=== PATIENT | male | born 1955 | race Caucasian/White ===

== ENCOUNTER 2016-12-14 09:46 | Inpatient (IN) | payer OTHER ==
[2016-12-14 10:23] VITALS: BMI 33.5
[2016-12-14 10:56] LABS: BASO # 0.1 K/uL (0.0-0.2); BASO % 0.9 % (0.0-2.0); EOS # 0.3 K/uL (0.0-0.7); EOS % 5.5 % (0.0-4.0); HEMOGLOBIN 13.6 g/dL (12.0-18.0); LYMPH % 16.2 % (20.0-40.0); MEAN CELL VOLUME 83.5 fl (80.0-94.0); MEAN CORPUSCULAR HEMOGLOBIN 27.1 pg (27.0-31.0); MEAN CORPUSCULAR HGB CONC 32.4 g/dL (33.0-37.0); MEAN PLATELET VOLUME 7.7 fl (7.2-11.7); MONO # 0.4 K/uL (0.0-0.8); MONO % 6.3 % (0.0-10.0); NEUT # 4.3 K/uL (1.8-7.0); NEUT % 71.1 % (50.0-75.0); NRBC % 0.1 % (0.0-0.0); RBC 5.02 Mil/uL (4.40-5.90); RED CELL DISTRIBUTION WIDTH 15.6 % (11.5-14.5); WHITE BLOOD COUNT 6.1 K/uL (4.8-10.8)
[2016-12-14 11:12] LABS: PARTIAL THROMBOPLASTIN TIME 36.3 Seconds (25.6-37.1); PROTHROMBIN TIME 10.9 Seconds (9.8-13.1)
[2016-12-14 11:19] LABS: ALB/GLOB RATIO 1.2 (1.0-2.1); ALBUMIN 4.4 g/dL (3.5-5.0); ALT/SGPT 42 U/L (21-72); AST/SGOT 31 U/L (17-59); BLOOD UREA NITROGEN 24 mg/dl (9-20); CALCIUM 9.8 mg/dL (8.4-10.2); GFR AFRICAN-AMERICAN > 60; GFR NON-AFRICAN AMERICAN > 60
[2016-12-14] MEDS ORDERED: Propofol 10 mg/ml Inj (20 ML) ONE (14:41)
[2016-12-14] MEDS ORDERED: Midazolam 2 MG/2 ML VIAL ONE (14:41)
[2016-12-14] MEDS ORDERED: Lidocaine 2% MPF (5 ml) Inj ONE (14:42)
[2016-12-14] MEDS ORDERED: Bacitracin Ointment 30 GM TUBE ONE (14:58)
[2016-12-14] MEDS ORDERED: Lactated Ringer's 1,000 ML IV ONE (15:00)
[2016-12-14] MEDS ORDERED: Sodium Chloride 0.9% 1,000 ML IV ONE ×2 (15:00→16:20)
[2016-12-14] MEDS ORDERED: ePHEDrine 50 mg/ml Inj ONE (15:04)
[2016-12-14] MEDS ORDERED: Bupivacaine 0.5% Inj(30mL) ONE (15:15)
[2016-12-14] MEDS ORDERED: Morphine 1 mg/ml preservative-free Inj(Duramorph) ONE (15:15)
[2016-12-14] MEDS ORDERED: EPINEPHrine 1 mg/ml (1:1000) Inj ONE (15:15)
[2016-12-14] MEDS ORDERED: Sodium Chloride 0.9% 20 ML IV ONE (15:15)
[2016-12-14] MEDS ORDERED: Rocuronium 10 mg/ml (5 ml) ONE (15:15)
[2016-12-14] MEDS ORDERED: Thrombin Topical 5,000 IU Spray Kit ONE (15:16)
[2016-12-14] MEDS ORDERED: Absorbable Gelatin Sponge Size 100 ONE (15:16)
[2016-12-14] MEDS ORDERED: Sodium Chloride 0.9% Inj (10mL) IV ONE (16:20)
[2016-12-14] MEDS ORDERED: Neostigmine Methylsulfate 3mg/3ml Syringe IV ONE (16:43)
[2016-12-14] MEDS ORDERED: Neostigmine Methylsulfate 2 MG/2 ML ML IV ONE (16:43)
--- NOTE | 2016-12-14 17:33 | PCM.SURG1 ---
Surgeon's Initial Post Op Note - Surgeon's Notes Surgeon: Meera Keys MD Production Grip: Annie Zarate PA-C; Génesis LUCIO Type of Anesthesia: General Endo Pre-Operative Diagnosis: Left Knee Severe Osteoarthritis Operative Findings: See op report Post-Operative Diagnosis: Same as pre-op dx Operation Performed: Left total knee replacement Specimen/Specimens Removed: left knee bone and soft tissue Estimated Blood Loss: EBL {In ML}: 100 Date of Surgery/Procedure: 12/14/16 Time of Surgery/Procedure: 15:15
[2016-12-14] MEDS ORDERED: HYDROmorphone 0.5 mg/0.5 ml ISec ONE (17:51)
[2016-12-14] MEDS: HYDROmorphone 0.5 mg/0.5 ml ISec IVP PRN ×3 (17:52→18:28)
--- NOTE | 2016-12-14 18:55 | CARD ---
APPROVED REPORT EKG Measurement Heart [id number] <Conclusion> Normal sinus rhythm Left axis deviation Low voltage QRS Septal infarct, age undetermined Abnormal ECG
[2016-12-14] MEDS ORDERED: ceFAZolin 1 GM in Sodium Chloride 0.9% 100 ML IVPB ONE (23:00)
[2016-12-15] MEDS ORDERED: Lactated Ringer's 1,000 ML IV SCH
[2016-12-15] MEDS: oxyCODONE 10 mg ER Tab (oxyCONTIN) PO SCH ×2 (02:50→09:01)
[2016-12-15] MEDS ORDERED: ceFAZolin 1 GM in Sodium Chloride 0.9% 100 ML IVPB ONE (07:00)
[2016-12-15 07:21] LABS: BASO % 0.5 % (0.0-2.0); EOS # 0.3 K/uL (0.0-0.7); EOS % 3.6 % (0.0-4.0); HEMOGLOBIN 9.5 g/dL (12.0-18.0); LYMPH # 0.8 K/uL (1.0-4.3); LYMPH % 11.2 % (20.0-40.0); MEAN CELL VOLUME 84.6 fl (80.0-94.0); MEAN CORPUSCULAR HEMOGLOBIN 27.2 pg (27.0-31.0); MEAN CORPUSCULAR HGB CONC 32.1 g/dL (33.0-37.0); MEAN PLATELET VOLUME 8.1 fl (7.2-11.7); MONO # 0.6 K/uL (0.0-0.8); MONO % 8.7 % (0.0-10.0); NEUT # 5.3 K/uL (1.8-7.0); RBC 3.51 Mil/uL (4.40-5.90); RED CELL DISTRIBUTION WIDTH 15.3 % (11.5-14.5)
[2016-12-15 07:39] LABS: CALCIUM 8.5 mg/dL (8.4-10.2)
--- NOTE | 2016-12-15 08:43 | OP ---
PROCEDURE DATE: 12/14/2016 PREOPERATIVE DIAGNOSIS: Left knee advanced arthritis. POSTOPERATIVE DIAGNOSIS: Left knee advanced arthritis. PROCEDURE: Left total knee replacement. SURGEON: Meera Keys MD. DOG WALKER: Annie Zarate PA-C IMPLANTS SIZE: [employer] size 3 tibial baseplate, size 3 femur, 11 mm polyethylene insert, and 32 mm patellar button. ANESTHESIA TYPE: General. ESTIMATED BLOOD LOSS: 50 mL. COMPLICATIONS: None. HISTORY: Patient with prolonged history of left knee pain progressively getting worse despite extensive conservative management, which included activity modification, injections, anti-inflammatory modification and physical therapy. X-rays had revealed advanced arthritis. Patient was indicated for total knee replacement due to continued pain and limited mobility. I had a detailed discussion with the patient in the office explaining the nature of the surgery, alternatives of surgery, risks and benefits, rehabilitation protocol and surgical markings. Risks of surgery include but not limited to continued pain, lack of motion, infection, vascular injury, DVT/PE, nerve injury including peroneal nerve dysfunction, reflex sympathetic dystrophy, compartment syndrome, unforeseen medical and/or anesthesia complications, limb loss, and even . The patient expressed an understanding of the risks and possible benefits of the procedure, and is also aware of the alternatives to surgery. PROCEDURE: On the day of the surgery, the patient was admitted to pre-operative holding area. A laterality sheet was completed confirming the correct operative site. The correct surgical knee was marked in the holding area and informed consent was signed from the patient. Once again, I reviewed the risks and benefits of the surgery with the patient in detail. These risks include but are not limited to continued pain, lack of motion, infection, vascular injury, DVT/PE, nerve injury including peroneal nerve dysfunction, reflex sympathetic dystrophy, symptomatic hardware, need for further procedure and surgeries, instability, iatrogenic fractures, compartment syndrome, unforeseen medical and/or anesthesia complications, limb loss, and even . The patient expressed an understanding of the risks and possible benefits of the procedure, also aware of the alternatives to surgery and signed the informed consent. The patient was transported to the operating room and placed in the supine position, general anesthesia was obtained Exam Under Anesthesia revealed effusion 1+, range of motion is 0-125 degrees, stable to varus and valgus stress, slight valgus alignment. A padded tourniquet was applied to patient's operative thigh and appropriate prophylactic antibiotics were given. The operative leg was draped and prepped in standard sterile manner. Timeout was completed, confirming patient's left knee to be the correct operative site. Using an Esmarch, the extremity was exsanguinated and tourniquet was inflated to 350 mmHg. The surgical incision markings were made using patella border, tibial tubercle, patella and quadriceps tendon. Using a 10 blade, a midline incision was made. Skin dissection was taken until the prepatellar fascia was identified and the corners of the patellar tendon were marked for proper closure at the end of the procedure. Using a fresh 10 blade, a medial parapatellar arthrotomy was performed. The knee was exposed in the standard manner. The deep MCL was elevated for exposure, medial and lateral menisci were removed, ACL and PCL were also transected. The tibia was subluxed anteriorly. Planned tibial cut was made with power saw, using extra-medullary guide, perpendicular to mechanical axis of the tibia. After the cut was made, the alignment was also checked and was found to be appropriate. Next, the knee was placed into 90 degrees of flexion. A drill hole was made within the femoral notch anterior to PCL insertion for placement of intramedullary femoral kimi. Intramedullary femoral kimi was inserted within the femoral canal and planned distal femoral cut was made. After the cut, knee was brought into full extension. Spacer blocks were used to check the extension balancing both in full extension and 30 degrees of flexion. It was found that a 11 mm trial spacer block allowed full extension with symmetric varus and valgus balancing. Next we proceed with Patella resurfacing. Benton patella width was found to be 26 mm. Using the free-hand technique the arthritic patella surface was resected. Patella was sized using the guide and it was noted that 32 mm Patella dome button would be appropriate for the patient. Next the size of femoral component was determined using the posterior referencing guide. It was noted that a size 3 femur would be appropriate for this patient without causing any significant notching. A 4 x 1 cutting block was placed and flexion gap balancing was checked. The flexion gap was found to be symmetric to the extension gap. Anterior and posterior condyle, anterior and posterior chamfer cuts were made. Next, appropriate size box cut for femoral component was prepared using the guide. The femoral trial component was impacted onto the distal femur. Appropriate size tibial trial component was also placed on the cut surface of the tibia. Using the drill and punch, keel for tibial implant was prepared. Trial tibial tray was secured onto the tibia using pins. Different size trial polyethylene inserts were secured on to the trial tibial tray to critically assess the following parameters: Full range of motion, extension and flexion gap balancing, mid-flexion stability, anterior and posterior drawer, and patellar tracking. All parameter were found to be satisfactory with size 11 mm insert. All the trial components were removed. Implants were opened on the back table. Cement was mixed and we proceed with cement fixation of the implants. Tibial tray, femoral component and patellar dome button were secured with cement. Polyethylene insert was secured onto the tibial tray using locking mechanism. The knee was reduced and brought into full extension. Cement was allowed to harden until final component fixation. Knee was taken through the final range of motion for stability testing, and found to be satisfactory. During this procedure, I was assisted by Annie Zarate, who assisted in positioning the patient on the operating room table as well as transferring the patient from the operating room table to the recovery room stretcher. In addition, Annie Zarate, assisted me during the actual operative procedure by positioning, protecting critical neurovascular structures, exposure of the joint, and proper positioning of the implants. The presence of Annie Zarate as my operative dietetic assistant was medically necessary to ensure the utmost safety of the patient in the pre, intra-, and post-operative periods. Meera Keys MD
[2016-12-15] MEDS ORDERED: Sodium Chloride 0.9% 1,000 ML IV SCH (09:00)
--- NOTE | 2016-12-15 10:17 | CP.PCM.HP ---
History of Present Illness - History of Present Illness History of Present Illness: This is a 61 y/o male admitted for Left knee TKR for progressive knee pain from work related injury Has a hx of HTN Hyperlipidemia CAD with stnt placed in the past and DM 2 and on medications but not aware of dose. Claims to be on BP meds lipid lowering agent and metformin. Conservative measures wre initiated but failed hence advised surgery. patient is being evaluated post op. Present on Admission - Present on Admission Any Indicators Present on Admission: No History of DVT/PE: No History of Uncontrolled Diabetes: No Urinary Catheter: No Decubitus Ulcer Present: No Review of Systems - Musculoskeletal Musculoskeletal: Arthralgias, Muscle Weakness, Myalgias Past Patient History - Past Medical History & Family History Past Medical History?: Yes - Past Social History Smoking Status: Current Some Days Smoker - CARDIAC Hx Cardiac Disorders: Yes Hx Hypercholesterolemia: Yes Hx Hypertension: Yes - PULMONARY Hx Respiratory Disorders: No - NEUROLOGICAL Hx Neurological Disorder: No Other/Comment: CAD - HEENT Hx HEENT Problems: No - RENAL Hx Chronic Kidney Disease: No - ENDOCRINE/METABOLIC Hx Endocrine Disorders: Yes Hx Diabetes Mellitus Type 2: Yes - HEMATOLOGICAL/ONCOLOGICAL Hx Blood Disorders: No Hx Anemia: No Hx Blood Transfusions: No - INTEGUMENTARY Hx Dermatological Problems: No - MUSCULOSKELETAL/RHEUMATOLOGICAL Hx Musculoskeletal Disorders: Yes Hx Back Pain: Yes Hx Falls: Yes Hx Osteoarthritis: Yes - GASTROINTESTINAL Hx Gastrointestinal Disorders: No - GENITOURINARY/GYNECOLOGICAL Hx Genitourinary Disorders: No - PSYCHIATRIC Hx Emotional Abuse: No Hx Physical Abuse: No - SURGICAL HISTORY Hx Surgeries: Yes Other/Comment: INSERTION OF HEART STENTX4-2004;BACK SURGERY-APR 2015;LEFT KNEE [id number];RIGHT FINGER SURGERY-LONG TIME AGO - ANESTHESIA Hx Anesthesia: Yes Hx Anesthesia Reactions: No Hx Malignant Hyperthermia: No Has any member of the family had a problem w/ anesthesia?: No Meds Allergies/Adverse Reactions: Allergies Allergy/AdvReac Type Severity Reaction Status Date / Time No Known Allergies Allergy Verified 03/30/16 07:50 Physical Exam - Head Exam Head Exam: NORMAL INSPECTION - Eye Exam Eye Exam: Normal appearance - Respiratory Exam Respiratory Exam: Clear to Auscultation Bilateral - Cardiovascular Exam Cardiovascular Exam: REGULAR RHYTHM - GI/Abdominal Exam GI & Abdominal Exam: Normal Bowel Sounds - Extremities Exam Extremities exam: Positive for: joint swelling - Neurological Exam Neurological exam: CN II-XII Intact, Oriented x3 - Psychiatric Exam Psychiatric exam: Normal Mood Results - Vital Signs Recent Vital Signs: Last Vital Signs Temp 97.7 F 12/15/16 08:00 Pulse 92 H 12/15/16 08:00 Resp 20 12/15/16 08:00 BP 100/61 12/15/16 08:00 Pulse Ox 96 12/15/16 08:00 - Labs Result Diagrams: 12/15/16 06:45 12/15/16 06:45 Labs: Laboratory Results - last 24 hr 12/14/16 12/14/16 12/14/16 10:25 10:25 10:25 WBC 6.1 RBC 5.02 Hgb 13.6 Hct 41.9 MCV 83.5 MCH 27.1 MCHC 32.4 L RDW 15.6 H Plt Count 212 MPV 7.7 Neut % (Auto) 71.1 Lymph % (Auto) 16.2 L Dillon % (Auto) 6.3 Eos % (Auto) 5.5 H Baso % (Auto) 0.9 Neut # 4.3 Lymph # 1.0 Dillon # 0.4 Eos # 0.3 Baso # 0.1 PT INR APTT Sodium 140 Potassium 4.5 Chloride 101 Carbon Dioxide 28 Anion Gap 15 BUN 24 H Creatinine 1.2 Est GFR ( Amer) > 60 Est GFR (Non-Af Amer) > 60 POC Glucose (mg/dL) Random Glucose 219 H Calcium 9.8 Total Bilirubin 0.4 AST 31 ALT 42 Alkaline Phosphatase 93 Total Protein 8.2 Albumin 4.4 Globulin 3.8 Albumin/Globulin Ratio 1.2 Blood Type B POSITIVE Blood Type Confirm Antibody Screen Negative BBK History Checked No verified bt 12/14/16 12/14/16 12/14/16 10:27 10:58 11:11 WBC RBC Hgb Hct MCV MCH MCHC RDW Plt Count MPV Neut % (Auto) Lymph % (Auto) Dillon % (Auto) Eos % (Auto) Baso % (Auto) Neut # Lymph # Dillon # Eos # Baso # PT 10.9 INR 1.0 APTT 36.3 Sodium Potassium Chloride Carbon Dioxide Anion Gap BUN Creatinine Est GFR ( Amer) Est GFR (Non-Af Amer) POC Glucose (mg/dL) 216 H Random Glucose Calcium Total Bilirubin AST ALT Alkaline Phosphatase Total Protein Albumin Globulin Albumin/Globulin Ratio Blood Type Blood Type Confirm B POSITIVE Antibody Screen BBK History Checked 12/15/16 12/15/16 06:45 06:45 WBC 7.0 RBC 3.51 L Hgb 9.5 L D Hct 29.7 L MCV 84.6 MCH 27.2 MCHC 32.1 L RDW 15.3 H Plt Count 139 MPV 8.1 Neut % (Auto) 76.0 H Lymph % (Auto) 11.2 L Dillon % (Auto) 8.7 Eos % (Auto) 3.6 Baso % (Auto) 0.5 Neut # 5.3 Lymph # 0.8 L Dillon # 0.6 Eos # 0.3 Baso # 0.0 PT INR APTT Sodium 137 Potassium 4.3 Chloride 103 Carbon Dioxide 30 Anion Gap 8 L BUN 27 H Creatinine 1.5 Est GFR ( Amer) 57 Est GFR (Non-Af Amer) 47 POC Glucose (mg/dL) Random Glucose 207 H Calcium 8.5 Total Bilirubin AST ALT Alkaline Phosphatase Total Protein Albumin Globulin Albumin/Globulin Ratio Blood Type Blood Type Confirm Antibody Screen BBK History Checked Assessment & Plan (1) Status post total knee replacement, left Status: Acute (2) Hypertension Status: Acute (3) Coronary artery disease Status: Acute (4) Hyperlipidemia Status: Acute (5) Diabetes mellitus type 2 in obese Status: Acute - Assessment and Plan (Free Text) Plan: Pain meds restart meds in am phys therapy cont tx telemetry
--- NOTE | 2016-12-15 10:24 | CP.PCM.PN ---
Subjective - Date & Time of Evaluation Date of Evaluation: 12/15/16 Time of Evaluation: 10:22 - Subjective Subjective: Patient has some pain on the left knee. No PT yet Not on any home meds MT in the 50's Objective - Vital Signs/Intake and Output Vital Signs (last 24 hours): Temp Pulse Resp BP Pulse Ox 97.7 F 92 H 20 100/61 96 12/15/16 08:00 12/15/16 08:00 12/15/16 08:00 12/15/16 08:00 12/15/16 08:00 - Medications Medications: Current Medications Acetaminophen (Tylenol 325mg Tab) 325 mg PO Q4 PRN PRN Reason: pain1-3 Aspirin (Aspirin) 325 mg PO BID [facility] Last Admin: 12/15/16 09:00 Dose: 325 mg Celecoxib (Celebrex) 200 mg PO Q12 [facility] Stop: 01/25/17 23:59 Last Admin: 12/15/16 08:57 Dose: 200 mg Famotidine (Pepcid) 20 mg PO BID [facility] Last Admin: 12/15/16 08:57 Dose: 20 mg Hydromorphone HCl (Dilaudid) 0.5 mg IVP Q5M PRN PRN Reason: Pain, moderate (4-7) Last Admin: 12/14/16 18:28 Dose: 0.5 mg Sodium Chloride (Sodium Chloride 0.9%) 1,000 mls @ 60 mls/hr IV .[id number] [facility] Stop: 12/16/16 01:39 Ketorolac Tromethamine (Toradol) 15 mg IM Q8 [facility] Stop: 12/16/16 23:59 Last Admin: 12/15/16 01:24 Dose: 15 mg Ondansetron HCl (Zofran Odt) 4 mg PO Q8H PRN PRN Reason: Nausea/Vomiting Oxycodone HCl (Oxycontin Extended Release Tab) 10 mg PO Q12 [facility] Stop: 12/28/16 21:01 Last Admin: 12/15/16 09:01 Dose: 10 mg Oxycodone/Acetaminophen (Percocet 5/325 Mg Tab) 1 tab PO Q4 PRN PRN Reason: pain4-6 Stop: 12/17/16 17:46 - Labs Labs: 12/15/16 06:45 12/15/16 06:45 PT 10.9 Seconds (9.8-13.1) 12/14/16 10:27 INR 1.0 (0.9-1.2) 12/14/16 10:27 APTT 36.3 Seconds (25.6-37.1) 12/14/16 10:27 - Head Exam Head Exam: NORMAL INSPECTION - Eye Exam Eye Exam: Normal appearance - ENT Exam ENT Exam: Mucous Membranes Moist - Cardiovascular Exam Cardiovascular Exam: REGULAR RHYTHM - GI/Abdominal Exam GI & Abdominal Exam: Normal Bowel Sounds - Neurological Exam Neurological Exam: Awake, Oriented x3 Assessment and Plan (1) Status post total knee replacement, left Status: Acute (2) Hypertension Status: Acute (3) Coronary artery disease Status: Acute (4) Hyperlipidemia Status: Acute (5) Diabetes mellitus type 2 in obese Status: Acute - Assessment and Plan (Free Text) Plan: Cont pain meds Phys therapy cbc cmp resume meds
--- NOTE | 2016-12-15 10:25 | RAD ---
PROCEDURE: Left Knee Radiographs. HISTORY: Pain. COMPARISON: None. FINDINGS: BONES: Status post left total knee replacement. No acute fracture. Prosthesis grossly intact. JOINTS: As above JOINT EFFUSION: None. OTHER FINDINGS: Anterior midline cutaneous saleem. IMPRESSION: Status post left TKR.
--- NOTE | 2016-12-15 12:29 | CP.PCM.PN ---
Subjective - Date & Time of Evaluation Date of Evaluation: 12/15/16 Time of Evaluation: 08:45 - Subjective Subjective: S/P LTKR POD#1 Pt seen and examined at bedside, comfortable in bed Pt c/o mild left knee pain, currently well controlled with pain meds Pt denies any SOB, chest pain, N/V/D, numbness/tingling LLE, dizziness Objective - Vital Signs/Intake and Output Vital Signs (last 24 hours): Temp Pulse Resp BP Pulse Ox 97.7 F 92 H 20 100/61 96 12/15/16 08:00 12/15/16 08:00 12/15/16 08:00 12/15/16 08:00 12/15/16 08:00 - Medications Medications: Current Medications Acetaminophen (Tylenol 325mg Tab) 325 mg PO Q4 PRN PRN Reason: pain1-3 Aspirin (Aspirin) 325 mg PO BID [facility] Last Admin: 12/15/16 09:00 Dose: 325 mg Atorvastatin Calcium (Lipitor) 10 mg PO DAILY [facility] Celecoxib (Celebrex) 200 mg PO Q12 [facility] Stop: 01/25/17 23:59 Last Admin: 12/15/16 08:57 Dose: 200 mg Famotidine (Pepcid) 20 mg PO BID [facility] Last Admin: 12/15/16 08:57 Dose: 20 mg Hydromorphone HCl (Dilaudid) 0.5 mg IVP Q5M PRN PRN Reason: Pain, moderate (4-7) Last Admin: 12/14/16 18:28 Dose: 0.5 mg Sodium Chloride (Sodium Chloride 0.9%) 1,000 mls @ 60 mls/hr IV .[id number] COUNT [facility]CLUD[facility] Stop: 12/16/16 01:39 Ketorolac Tromethamine (Toradol) 15 mg IM Q8 [facility] Stop: 12/16/16 23:59 Last Admin: 12/15/16 01:24 Dose: 15 mg Lisinopril (Zestril) 10 mg PO DAILY [facility] Metformin HCl (Glucophage) 1,000 mg PO BIDWM COUNT [facility]CLUD[facility] Ondansetron HCl (Zofran Odt) 4 mg PO Q8H PRN PRN Reason: Nausea/Vomiting Oxycodone HCl (Oxycontin Extended Release Tab) 10 mg PO Q12 [facility] Stop: 12/28/16 21:01 Last Admin: 12/15/16 09:01 Dose: 10 mg Oxycodone/Acetaminophen (Percocet 5/325 Mg Tab) 1 tab PO Q4 PRN PRN Reason: pain4-6 Stop: 12/17/16 17:46 - Labs Labs: 12/15/16 06:45 12/15/16 06:45 PT 10.9 Seconds (9.8-13.1) 12/14/16 10:27 INR 1.0 (0.9-1.2) 12/14/16 10:27 APTT 36.3 Seconds (25.6-37.1) 12/14/16 10:27 - Constitutional Appears: Well, No Acute Distress - Respiratory Exam Respiratory Exam: Clear to Ausculation Bilateral, NORMAL BREATHING PATTERN - Cardiovascular Exam Cardiovascular Exam: REGULAR RHYTHM, RRR - Extremities Exam Additional comments: LLE: Knee dressing C/D/I Calves soft and nontender b/l N/V intact distally DP and PT pulses wnl No foot drop Assessment and Plan - Assessment and Plan (Free Text) Assessment: S/P LTKR POD#1 Plan: S/P LTKR POD#1 Pt BP runs low, NS fluids ordered, madelyn vitals, will f/u Pain Control DVT ppx PT/OT- WBAT LLE Incentive Spirometer F/U labs Discussed with Dr. Keys
[2016-12-15] MEDS: Oxycodone/Acetaminophen 5/325 mg Tab PO PRN (14:03)
[2016-12-15] MEDS: Insulin Lispro (humaLOG) 100 Units/ml Inj SC SCH ×2 (17:20→22:37)
[2016-12-16 07:33] LABS: BASO % 0.4 % (0.0-2.0); EOS # 0.3 K/uL (0.0-0.7); EOS % 4.9 % (0.0-4.0); HEMOGLOBIN 9.3 g/dL (12.0-18.0); LYMPH # 0.7 K/uL (1.0-4.3); MEAN CELL VOLUME 83.2 fl (80.0-94.0); MEAN CORPUSCULAR HEMOGLOBIN 27.3 pg (27.0-31.0); MEAN CORPUSCULAR HGB CONC 32.9 g/dL (33.0-37.0); MONO # 0.6 K/uL (0.0-0.8); MONO % 9.4 % (0.0-10.0); NEUT # 4.7 K/uL (1.8-7.0); NEUT % 74.3 % (50.0-75.0); RBC 3.4 Mil/uL (4.40-5.90); RED CELL DISTRIBUTION WIDTH 15.2 % (11.5-14.5); WHITE BLOOD COUNT 6.3 K/uL (4.8-10.8)
[2016-12-16 07:48] LABS: BLOOD UREA NITROGEN 22 mg/dl (9-20); CALCIUM 8.8 mg/dL (8.4-10.2); GFR AFRICAN-AMERICAN > 60; GFR NON-AFRICAN AMERICAN > 60
[2016-12-16] MEDS: oxyCODONE 10 mg ER Tab (oxyCONTIN) PO SCH ×3 (09:00→21:24)
[2016-12-16] MEDS: Insulin Lispro (humaLOG) 100 Units/ml Inj SC SCH ×4 (09:02→21:22)
[2016-12-16] MEDS: Oxycodone/Acetaminophen 5/325 mg Tab PO PRN ×2 (09:47→13:42)
[2016-12-16] MEDS ORDERED: Lactulose 10 gm/15 ml Syrup PO PRN (12:09)
[2016-12-17 00:23] VITALS: RESP 20
[2016-12-17] MEDS: Insulin Lispro (humaLOG) 100 Units/ml Inj SC SCH ×2 (06:38→13:01)
[2016-12-17 07:08] LABS: BASO % 0.6 % (0.0-2.0); EOS # 0.3 K/uL (0.0-0.7); EOS % 4.6 % (0.0-4.0); HEMOGLOBIN 8.9 g/dL (12.0-18.0); LYMPH # 0.8 K/uL (1.0-4.3); LYMPH % 13.9 % (20.0-40.0); MEAN CELL VOLUME 83.3 fl (80.0-94.0); MEAN CORPUSCULAR HEMOGLOBIN 27.6 pg (27.0-31.0); MEAN CORPUSCULAR HGB CONC 33.2 g/dL (33.0-37.0); MEAN PLATELET VOLUME 7.8 fl (7.2-11.7); MONO # 0.7 K/uL (0.0-0.8); MONO % 11.3 % (0.0-10.0); NEUT # 4.2 K/uL (1.8-7.0); NEUT % 69.6 % (50.0-75.0); RBC 3.23 Mil/uL (4.40-5.90); RED CELL DISTRIBUTION WIDTH 15.3 % (11.5-14.5)
[2016-12-17 07:48] LABS: BLOOD UREA NITROGEN 19 mg/dl (9-20); CALCIUM 9.2 mg/dL (8.4-10.2); GFR AFRICAN-AMERICAN > 60; GFR NON-AFRICAN AMERICAN > 60
[2016-12-17 08:29] VITALS: TEMP 97.9; O2SAT 97
--- NOTE | 2016-12-17 09:01 | CP.PCM.PN ---
Subjective - Date & Time of Evaluation Date of Evaluation: 12/17/16 Time of Evaluation: 08:30 - Subjective Subjective: S/P LTKR POD#3 Pt seen and examined at bedside, comfortable in bed Pt denies any current left knee pain, currently well controlled with pain meds Pt denies any SOB, chest pain, N/V/D, numbness/tingling LLE Objective - Vital Signs/Intake and Output Vital Signs (last 24 hours): Temp Pulse Resp BP Pulse Ox 97.9 F 84 20 97/62 L 97 12/17/16 08:28 12/17/16 08:28 12/17/16 08:28 12/17/16 08:28 12/17/16 08:28 Intake and Output: 12/17/16 12/17/16 06:59 18:59 Output Total 400 Balance -400 - Medications Medications: Current Medications Acetaminophen (Tylenol 325mg Tab) 325 mg PO Q4 PRN PRN Reason: pain1-3 Aspirin (Aspirin) 325 mg PO BID [facility] Last Admin: 12/16/16 17:22 Dose: 325 mg Atorvastatin Calcium (Lipitor) 10 mg PO DAILY [facility] Last Admin: 12/16/16 09:01 Dose: 10 mg Celecoxib (Celebrex) 200 mg PO Q12 [facility] Stop: 01/25/17 23:59 Last Admin: 12/16/16 21:24 Dose: 200 mg Docusate Sodium (Colace) 100 mg PO DAILY PRN PRN Reason: constipation Last Admin: 12/16/16 17:25 Dose: 100 mg Famotidine (Pepcid) 20 mg PO BID [facility] Last Admin: 12/16/16 17:16 Dose: 20 mg Hydromorphone HCl (Dilaudid) 0.5 mg IVP Q5M PRN PRN Reason: Pain, moderate (4-7) Last Admin: 12/14/16 18:28 Dose: 0.5 mg Insulin Human Lispro (Humalog) 0 units [place] [facility] PRN Reason: Protocol Last Admin: 12/17/16 06:38 Dose: Not Given Lactulose (Enulose) 10 gm PO DAILY PRN PRN Reason: Constipation Last Admin: 12/16/16 13:39 Dose: 10 gm Lisinopril (Zestril) 10 mg PO DAILY [facility] Last Admin: 12/16/16 09:01 Dose: 10 mg Metformin HCl (Glucophage) 1,000 mg PO BIDWM [facility] Last Admin: 12/16/16 17:16 Dose: 1,000 mg Ondansetron HCl (Zofran Odt) 4 mg PO Q8H PRN PRN Reason: Nausea/Vomiting Oxycodone HCl (Oxycontin Extended Release Tab) 10 mg PO Q12 [facility] Stop: 12/28/16 21:01 Last Admin: 12/16/16 21:24 Dose: 10 mg Oxycodone/Acetaminophen (Percocet 5/325 Mg Tab) 1 tab PO Q4 PRN PRN Reason: pain4-6 Stop: 12/17/16 17:46 Last Admin: 12/16/16 13:42 Dose: 1 tab - Labs Labs: 12/17/16 06:20 12/17/16 06:20 PT 10.9 Seconds (9.8-13.1) 12/14/16 10:27 INR 1.0 (0.9-1.2) 12/14/16 10:27 APTT 36.3 Seconds (25.6-37.1) 12/14/16 10:27 - Constitutional Appears: Well, No Acute Distress - Respiratory Exam Respiratory Exam: Clear to Ausculation Bilateral, NORMAL BREATHING PATTERN - Cardiovascular Exam Cardiovascular Exam: REGULAR RHYTHM, RRR - Extremities Exam Additional comments: LLE: Knee dressing C/D/I Calves soft and nontender b/l N/V intact distally Distal pulses wnl Assessment and Plan - Assessment and Plan (Free Text) Assessment: 61 yo M s/p LTKR POD#3 Plan: 61 yo M s/p LTKR POD#3 Pain Control DVT ppx PT/OT Incentive Spirometer Continue current management D/C planning to rehab pending PT clearance Discussed with Dr. Keys
[2016-12-17 09:39] VITALS: BP 102/62; PULSE 98
[2016-12-17] MEDS: oxyCODONE 10 mg ER Tab (oxyCONTIN) PO SCH (09:49)
== END 2016-12-17 15:52 | DRG 470 ==
LOC: H.OPSURG 09:46 → H.TEL 19:30 → H.MEDSURG1 12-15 18:46
PROVIDERS: ADMIT Orthopaedic Surgery; ATTEND Orthopaedic Surgery
PROC: 0SRD0J9 Replacement of Left Knee Joint with Synthetic Substitute, Cemented, Open Approach (ICD-10-PCS; principal; 2016-12-14 11:15)
DX: M17.12 Unilateral primary osteoarthritis, left knee (principal); I10 Essential (primary) hypertension; E11.9 Type 2 diabetes mellitus without complications; I25.10 Atherosclerotic heart disease of native coronary artery without angina pectoris; E66.9 Obesity, unspecified; Z68.33 Body mass index [BMI] 33.0-33.9, adult; E78.5 Hyperlipidemia, unspecified; Z95.5 Presence of coronary angioplasty implant and graft